=== PATIENT | female | born 1995 | race Two or more races ===

== ENCOUNTER → 2017-10-09 | Outpatient (REF) | payer BC ==
[2017-10-09 13:37] LABS: BASO % 0.3 % (0.0-1.0); EOS # 0.1 10^3/uL (0.0-0.50); IMMATURE GRANULOCYTE % 0.3 % (0-0); LYMPH # 1.8 10^3/uL (1.5-6.5); MEAN CORPUSCULAR HEMOGLOBIN 29.2 pg (27.0-33.0); MEAN CORPUSCULAR HGB CONC 33.2 g/dl (32.0-36.5); MEAN CORPUSCULAR VOLUME 87.9 fl (80.0-96.0); MONO # 0.7 10^3/uL (0.0-0.8); MONO % 6.4 % (0.0-5.0); PLATELET COUNT, AUTOMATED 168 10^3/uL (150-450); RED CELL DISTRIBUTION WIDTH 11.9 % (11.5-14.5); WHITE BLOOD COUNT 11.6 10^3/uL (4.0-10.0)
[2017-10-09 14:50] LABS: ALBUMIN 4.2 GM/DL (3.2-5.2); ALBUMIN/GLOBULIN RATIO 1.27 (1.00-1.93); ALKALINE PHOSPHATASE 64 U/L (45-117); ALT/SGPT 17 U/L (12-78); ANION GAP 8 MEQ/L (8-16); AST/SGOT 9 U/L (7-37); BILIRUBIN,TOTAL 0.6 MG/DL (0.2-1.0); BLOOD UREA NITROGEN 7 MG/DL (7-18); CALCIUM LEVEL 9.3 MG/DL (8.5-10.1); CARBON DIOXIDE LEVEL 27 MEQ/L (21-32); CHLORIDE LEVEL 105 MEQ/L (98-107); FREE T4 1.23 NG/DL (0.78-1.33); GLUCOSE, FASTING 83 MG/DL (70-105); SODIUM LEVEL 140 MEQ/L (136-145); TOTAL PROTEIN 7.5 GM/DL (6.4-8.2)
== END ==
LOC: M SFHCADAM 11:07
PROVIDERS: ATTEND Physician Assistant Medical
DX: Z00.00 Encounter for general adult medical examination without abnormal findings (principal); F12.10 Cannabis abuse, uncomplicated; F41.9 Anxiety disorder, unspecified; F51.01 Primary insomnia

== ENCOUNTER → 2018-03-18 | Outpatient (REF) | payer BC ==
[2018-03-18 15:57] LABS: CHLAMYDIA DNA AMPLIFICATION NEGATIVE (NEGATIVE); GC DNA AMPLIFICATION NEGATIVE (NEGATIVE)
== END ==
LOC: M SFHCWAGY 12:53
DX: Z11.3 Encounter for screening for infections with a predominantly sexual mode of transmission (principal)
CPT/HCPCS: 87591

== ENCOUNTER → 2018-07-08 | Outpatient (CLI) | payer BC | LOC: M ADAMS 11:00 | DX: M25.561 Pain in right knee (principal) | CPT/HCPCS: 73564 ==

== ENCOUNTER → 2018-12-13 | Outpatient (REF) | payer BC ==
[2018-12-13 15:36] LABS: CHLAMYDIA DNA AMPLIFICATION NEGATIVE (NEGATIVE); GC DNA AMPLIFICATION NEGATIVE (NEGATIVE)
== END ==
LOC: M SFHCWAGY 11:28
PROVIDERS: ATTEND Nurse Practitioner Family
DX: Z12.4 Encounter for screening for malignant neoplasm of cervix (principal); Z11.3 Encounter for screening for infections with a predominantly sexual mode of transmission
CPT/HCPCS: 87491; 87591; G0123

== ENCOUNTER → 2019-04-12 | Outpatient (CLI) | payer BC ==
[2019-04-12 13:17] LABS: BASO % 0.4 % (0.0-1.0); EOS # 0.1 10^3/uL (0.0-0.50); EOS % 1.3 % (0.0-3.0); HEMATOCRIT 37.1 % (36.0-47.0); HEMOGLOBIN 12.5 g/dl (12.0-15.5); LYMPH # 1.5 10^3/uL (1.5-6.5); LYMPH % 15.9 % (24.0-44.0); MEAN CORPUSCULAR HEMOGLOBIN 30.6 pg (27.0-33.0); MEAN CORPUSCULAR HGB CONC 33.7 g/dl (32.0-36.5); MEAN CORPUSCULAR VOLUME 90.9 fl (80.0-96.0); MONO # 0.8 10^3/uL (0.0-0.8); MONO % 8.3 % (0.0-5.0); NEUTROPHILS # 6.7 10^3/uL (1.8-7.7); NEUTROPHILS % 73.7 % (36.0-66.0); PLATELET COUNT, AUTOMATED 152 10^3/uL (150-450); RED BLOOD COUNT 4.08 10^6/uL (4.00-5.40); WHITE BLOOD COUNT 9.1 10^3/uL (4.0-10.0)
[2019-04-12 14:55] LABS: CHLAMYDIA DNA AMPLIFICATION NEGATIVE (NEGATIVE); GC DNA AMPLIFICATION NEGATIVE (NEGATIVE)
[2019-04-13 11:03] LABS: HEPATITIS C VIRUS ABY INDEX < 0.0 INDEX (<0.8); HIV 1&2 SCREEN CENTAUR NEGATIVE (NEGATIVE); RUBELLA IgG QUALITATIVE IMMUNE (IMMUNE)
== END ==
LOC: M SMT 08:59
PROVIDERS: ATTEND Advanced Practice Midwife
DX: Z34.02 Encounter for supervision of normal first pregnancy, second trimester (principal); Z3A.18 18 weeks gestation of pregnancy

== ENCOUNTER → 2019-04-19 | Outpatient (CLI) | payer BC, MEDICAID ==
--- NOTE | 2019-04-20 12:56 | REP ---
OB ULTRASOUND: Real-time sonographic evaluation of the gravid uterus is performed. There is a single living intrauterine gestation. Estimated gestational age 22 weeks based on today's ultrasound. EDC 08/23/2019. BPD 51 mm = 21 weeks 4 days HC 196 mm = 21 weeks 5 days AC 185 mm = 23 weeks 2 days Femur length 39 mm = 22 weeks 5 days HC/AC ratio 1.06 within normal range. Estimated weight 537 grams, 72nd percentile. heart rate 151 beats per minute. SEEN/GROSSLY UNREMARKABLE Lateral ventricles Yes Posterior fossa Yes Upper lip Yes Four-chamber heart Yes LVOT Yes RVOT Yes Stomach Yes Cord insertion Yes Three vessel cord Yes Kidneys Mild hydronephrosis bilaterally, AP diameter renal pelves 6-7 mm Bladder Yes Spine Yes position: Breech. Placenta: Anterior and grade 0 with no previa or abruption. Amniotic fluid: Within normal limits. Cervix is closed and measures 4 cm in length. Electronically Signed by Farhad Anna MD 04/21/2019 10:56 A
== END ==
LOC: M RAD 16:20
PROVIDERS: ATTEND Advanced Practice Midwife
DX: Z34.02 Encounter for supervision of normal first pregnancy, second trimester (principal); Z3A.18 18 weeks gestation of pregnancy

== ENCOUNTER → 2019-06-01 | Outpatient (CLI) | payer BC, OTHER ==
[2019-06-01 14:04] LABS: HEMATOCRIT 38.5 % (36.0-47.0); HEMOGLOBIN 13.2 g/dl (12.0-15.5); MEAN CORPUSCULAR HEMOGLOBIN 31.8 pg (27.0-33.0); MEAN CORPUSCULAR HGB CONC 34.3 g/dl (32.0-36.5); MEAN CORPUSCULAR VOLUME 92.8 fl (80.0-96.0); PLATELET COUNT, AUTOMATED 137 10^3/uL (150-450); RED BLOOD COUNT 4.15 10^6/uL (4.00-5.40); WHITE BLOOD COUNT 7.9 10^3/uL (4.0-10.0)
== END ==
LOC: M SMT 09:04
PROVIDERS: ATTEND Advanced Practice Midwife
DX: Z34.82 Encounter for supervision of other normal pregnancy, second trimester (principal); Z3A.00 Weeks of gestation of pregnancy not specified

== ENCOUNTER → 2019-06-30 | Outpatient (CLI) | payer BC, MEDICAID, OTHER ==
[~2019-06-30] MED LIST: CVS1CAP2 PO; PRENTAB9 PO
--- NOTE | 2019-06-30 10:16 | REP ---
Clinical: Growth evaluation. Comparison: 04/19/2019 . Findings: Examination demonstrates a single live intrauterine in cephalic presentation. motion is identified by technologist. Placenta is noted anterior and grade one without evidence for placenta previa or abruption. Amniotic fluid volume is normal. Cervix measures 4.2 cm in length and appears closed. Nuchal cord cannot be excluded Gestational age by LMP 32 weeks 2-day with EILEEN 08/23/2019 . Gestational age by current measurements 33 weeks 0 days with EILEEN 08/18/2019 . FHR equals 150 beats per minute. BPD 8.2 cm 33 weeks 0 days HC 30.0 cm 33 weeks 2 days AC 28.8 cm 32 weeks 6 days FL 6.5 cm 33 weeks 4 days HL 5.6 cm 32 weeks 3 days HC/AC ratio 1.04 Estimated weight 2112 grams ( 59th percentile). Amniotic fluid index: 10.0 cm (8.5 - 24.3) Umbilical cord SD ratio: 2.19 (2.35 - 3.35). Impression: 1. Single live intrauterine in cephalic presentation demonstrating appropriate interval growth. 2. Nuchal cord cannot be excluded. Electronically Signed by Melvin García MD 06/30/2019 10:08 A
== END ==
LOC: M RAD 09:03
PROVIDERS: ATTEND Advanced Practice Midwife
DX: O36.8930 Maternal care for other specified fetal problems, third trimester, not applicable or unspecified (principal)

== ENCOUNTER → 2019-07-21 | Outpatient (CLI) | payer BC, MEDICAID | LOC: M SMT 09:25 | PROVIDERS: ATTEND Advanced Practice Midwife | DX: Z34.03 Encounter for supervision of normal first pregnancy, third trimester (principal); Z3A.00 Weeks of gestation of pregnancy not specified ==

== ENCOUNTER → 2019-07-25 | Outpatient (CLI) | payer BC, MEDICAID ==
--- NOTE | 2019-07-26 04:28 | REP ---
Clinical: Growth discrepancy Comparison: 06/30/2019 . Findings: Examination demonstrates a single live intrauterine in cephalic presentation. motion is identified by technologist. Placenta is noted anterior and grade II without evidence for placenta previa or abruption. Amniotic fluid volume is normal. Cervix measures 3.4 cm in length and appears closed. Nuchal cord cannot be excluded. Gestational age by LMP 35 weeks 6 days with EILEEN 08/23/2019 . Gestational age by current measurements 36 weeks 2 days with EILEEN 08/20/2019 . FHR equals 157 beats per minute. BPD 9.2 cm 37 weeks 2 day HC 32.1 cm 36 weeks 2 day AC 32.0 cm 35 weeks 6 days FL 7.3 cm 37 weeks 2 days HL 6.0 cm 34 weeks 4 days HC/AC ratio 1.00 Estimated weight 2938 grams ( 60th percentile). Amniotic fluid index: 10.0 cm (7.7 - 24.9) Umbilical cord SD ratio: 2.37 (2.00 - 3.00). Anatomical assessment suggests mild bilateral hydronephrosis with the right renal pelvis measuring 8 mm diameter and the left renal pelvis measuring 9 mm diameter. Stomach and renal bladder appear normal. Impression: 1. Single live advanced gestation in cephalic presentation demonstrating appropriate interval growth. 2. Very mild bilateral renal hydronephrosis warrants follow-up examination. Electronically Signed by Melvin García MD 07/26/2019 04:19 A
== END ==
LOC: M RAD 07:05
PROVIDERS: ATTEND Advanced Practice Midwife
DX: O26.843 Uterine size-date discrepancy, third trimester (principal); Z3A.36 36 weeks gestation of pregnancy

== ENCOUNTER 2019-08-22 09:30 | Inpatient (IN) | payer BC, MEDICAID ==
[~2019-08-22] VITALS: Ht 165.1 cm; Wt 68.8 kg
[2019-08-22] VITALS (43 sets, daily range): BP systolic 91–150; BP diastolic 50–88
[2019-08-22] MEDS ORDERED: CVS1CAP2 PO (10:27)
[2019-08-22] MEDS ORDERED: PRENTAB9 PO (10:27)
--- NOTE | 2019-08-22 10:39 | HPEPDOC ---
Obstetrical History & Physical General Date of Admission Aug 22, 2019 at 09:30 Primary Care Physician: MEKHI RODRIGUEZ CNM History of Present Illness Patient is a 24-year-old female who is a G!P0 at 40.6 weeks gestation with an EILEEN of 08/16/19 based off of a 2nd trimester ultrasound done at 17 weeks gestation. Her has been complicated late entry to care, thrombocytopenia and mild hydronephrosis of fetus. She presents to L&D for an elective induction of labor. She denies contractions, leaking of fluid, or vaginal bleeding. She reports active movement. Information Provided By: Patient Age: 24 : 1 Term: 0 Pre-term: 0 Abortions: 0 Livin Care Care: Good Care (10) Number of Visits: 10 Dating Final EDC: Aug 16, 2019 Final EDC by: 2nd trimester (US) EGA at Admission: 40.6 Antepartum Course Diagnos(e)s thrombocytopenia of Height (inches): 65 Pre- weight (lbs.): 146 Admission Weight (lbs.): 152 Change in Weight (lbs.): 6 Past Medical History Past Obstetrical History : Past Obstetrical History: Primgravida TIRE [employer]OUNTER History: No pertinent history Past Medical History Medical History subluxation of patella anxiety Surgical History: Denies/None Family History Significant Family History: Cancer, Diabetes, Other (MS) Social History Social history paternity unknown Marital Status: Single Psychosocial History: Anxiety * Smoker: non-smoker Alcohol: Denies Drugs: marijuana (reports she used 1 time i nthe begining of her ) Imunizations Tdap status: declined Influenza Status: declined Allergies Coded Allergies: No Known Allergies (Unverified , 08/22/19) Medications Scheduled Lactobacillus Combo No.10 (Probiotic) 1 Each Capsule, 1 TAB PO DAILY No.137/Iron/Folic Acd ( Vitamin Tablet) 1 Each Tablet, 1 TAB PO DAILY Physical Examination Physical Examination GENERAL: Alert and oriented times three. BREAST: . ABDOMEN: Gravid and non-tender to touch. FETUS: Is vertex (VTX) by sterile vaginal examination (SVE), fetus is vertex (VTX) by Vikas. HEART RATE: Regular rate and rhythm. LUNGS: Clear to auscultation (CTA). EXTREMITIES: No edema. No clonus. Deep tendon reflexes (DTRs) + 2. Vital Signs/I&O Vital Signs Label Value Date Time Patient Temperature 97.8 degrees F 08/22/19 1037 Pulse 94 08/22/19 1037 Respiratory Rate 16 bpm 08/22/19 1037 Blood Pressure Assessment 127/81 (96) 08/22/19 1037 Source Automatic Cuff (NIBP) Laboratory Data [facility] Laboratory Tests 2 08/22/19 09:50: Serology Scanned Report Hepatitis B Testing CBC/BMP Item Value Date Time White Blood Count 13.0 10^3/uL H 08/22/19 1049 Red Blood Count 4.41 10^6/uL 08/22/19 1049 Hemoglobin 14.0 g/dl 08/22/19 1049 Hematocrit 40.0 % 08/22/19 1049 Mean Corpuscular Volume 90.7 fl 08/22/19 1049 Mean Corpuscular Hemoglobin 31.7 pg 08/22/19 1049 Mean Corpuscular Hemoglobin Concent 35.0 g/dl 08/22/19 1049 Red Cell Distribution Width 12.0 % 08/22/19 1049 Platelet Count 123 10^3/uL L 08/22/19 1049 Nucleated Red Blood Cells % (auto) 0.0 % 08/22/19 1049 Urine Culture: No Growth Pertinent Laboratoy Data Blood Type: O+ RBC Antibody Screen: Negative HIV: Negative Hepatitis B: Negative Hepatitis C: Negative Rapid Plasma Reagin: Nonreactive Rubella: Immune Chlamydia/Gonorrhea: Negative Group B Streptococcus: Negative Quad Screen Test: Declined Cystic Fibrosis: Declined Glucose Tolerance Test: 125 Anatomy Ultrasound Ultrasound Date: Jul 25, 2019 Placenta Location: Anterior Normal Anatomy: Yes Placenta Previa: No Estimated Weight (grams): 2938 Vaginal Examination Dilation: 1cm Effacement: other (75%) Station: -1 Cervical Consistency: Medium Cervical Position: Anterior Presentation: Cephalic presentation Position: Vertex (occiput) Assessment Heart Rate (FHR): 130 Variability: Moderate Accelerations: Positive Decelerations: None Tocometer Contractions: Yes Frequency: irregular Assessment/Plan Assessment IUP at 40.6 weeks gestation GBS negative Category I FHR tracing Plan Admit to L&D. OOB ad amelie Diet: regular. Group B Streptococcus (GBS) negative. Labs and intravenous (IV) per unit protocol. Counseled Cytotec, mejia bulb and Pitocin for induction of labor (IOL). Anesthesia consult per patient's request. Anticipate cervical ripening. MEKHI RODRIGUEZ CNM Aug 22, 2019 10:39
[2019-08-22] MEDS ORDERED: miSOPROStol 50 MCG 1/2 TAB (S0191) PO SCH (11:00)
[2019-08-22 11:07] LABS: MEAN CORPUSCULAR HEMOGLOBIN 31.7 pg (27.0-33.0); MEAN CORPUSCULAR VOLUME 90.7 fl (80.0-96.0); PLATELET COUNT, AUTOMATED 123 10^3/uL (150-450); RED BLOOD COUNT 4.41 10^6/uL (4.00-5.40)
[2019-08-22 13:48] LABS: AMPHETAMINES URINE REFLEX NEGATIVE (NEGATIVE); BARBITURATES URINE REFLEX NEGATIVE (NEGATIVE); BENZODIAZEPINES URINE REFLEX NEGATIVE (NEGATIVE); CANNABINOIDS URINE REFLEX NEGATIVE (NEGATIVE); COCAINE METABOLITE URINE REFLE NEGATIVE (NEGATIVE); METHADONE URINE REFLEX NEGATIVE (NEGATIVE); OPIATES URINE REFLEX NEGATIVE (NEGATIVE); PHENCYCLIDINE URINE REFLEX NEGATIVE (NEGATIVE)
--- NOTE | 2019-08-22 17:58 | IPNPDOC ---
Obstetrical Progress Note Date of Service Aug 22, 2019 Subjective Patient reports she is feeling cramps with her contractions. Objective Vital Signs Date Time Temp Pulse Resp B/P (MAP) Pulse Ox O2 Delivery O2 Flow Rate FiO2 08/22/19 17:32 86 16 116/74 (88) 08/22/19 15:34 99.5 Assessment Heart Rate (FHR): 125 Variability: Moderate Accelerations: Positive Decelerations: None Heart Rate Tracing: Category I Tocometer Contractions: Yes Frequency: regular, every 1-5 min. Sterile Vaginal Examination Dilation: 1cm Effacement (%): 90% Station: 0 Cervical Position: Anterior Postion/Presentation: Cephalic presentation Assessment and Plan Age: 24 : 1 Term: 0 Pre-term: 0 Abortions: 0 Livin EGA at Admission: 40.6 Status: Reassuring Group B Streptococcus: Negative Anticipate: Vaginal Delivery Additional Comments Patient ruptured spontaneously to a moderate amount of clear fluid at 1514. IV Pitocin ordered and to be started. MEKHI RODRIGUEZ CNM Aug 22, 2019 17:58
[2019-08-22] MEDS ORDERED: OXYTOCIN DRIP 30 UNITS in IV 1 EA IV SCH (18:00)
[2019-08-22] MEDS: LR 1,000 ML IV SCH ×2 (18:24→20:46)
[2019-08-22] MEDS ORDERED: FENTANYL 2MCG/ML ROPIVACAINE 0.2% IN 0.9% NACL 100ML IVBAG As Ordered ONE (19:25)
[2019-08-22] MEDS ORDERED: ePHEDrine SULFATE 25 MG/5 ML(5MG/ML) SYRINGE As Ordered ONE (20:50)
[2019-08-22] MEDS ORDERED: EPIDURAL COMMENT XX SCH (21:00)
[2019-08-22] MEDS ORDERED: diphenhydrAMINE INJ 50MG/ML VIAL (J1200) IV PRN (21:00)
[2019-08-22] MEDS ORDERED: EPIDURAL/PCA KEYS XX PRN (21:00)
[2019-08-22] MEDS ORDERED: NALOXONE INJ 0.4 MG/1 ML VIAL (J2310) IV PRN (21:00)
[2019-08-22] MEDS ORDERED: ONDANSETRON 4MG/2ML VIAL (J2405) IV PRN (21:00)
[2019-08-22] MEDS ORDERED: FENTANYL/ROPIVACAINE/NACL BAG 100 ML EPIDURAL SCH (21:00)
[2019-08-22] MEDS ORDERED: REFRIGERATOR IV KEYS XX PRN (21:00)
[2019-08-22] MEDS: ePHEDrine SULFATE 25 MG/5 ML(5MG/ML) SYRINGE IV PRN (21:25)
[2019-08-23] VITALS (24 sets, daily range): BP systolic 96–123; BP diastolic 51–86
[2019-08-23] MEDS: ePHEDrine SULFATE 25 MG/5 ML(5MG/ML) SYRINGE IV PRN (00:01)
--- NOTE | 2019-08-23 01:06 | IPNPDOC ---
Obstetrical Progress Note Date of Service Aug 23, 2019 Subjective Patient comfortable with her epidural. Objective Vital Signs Date Time Temp Pulse Resp B/P (MAP) Pulse Ox O2 Delivery O2 Flow Rate FiO2 08/23/19 00:30 88 18 107/56 (73) 08/22/19 20:06 98.0 Assessment Heart Rate (FHR): 130 Variability: Moderate Accelerations: Positive Decelerations: Early, Late Heart Rate Tracing: Category II Tocometer Contractions: Yes Frequency: regular, other (2-3 minutes) Sterile Vaginal Examination Dilation: 4 cm (4-5 cm) Effacement (%): 100% Station: 0 Postion/Presentation: Cephalic presentation Assessment and Plan Age: 24 : 3 Term: 1 Pre-term: 0 Abortions: 1 Livin EGA at Admission: 40.6 Weeks & Days 41 weeks Status: Reassuring Group B Streptococcus: Negative Anticipate: Vaginal Delivery Additional Comments IV Pitocin at 6 mu/min. Will continue to monitor. MEKHI RODRIGUEZ CNM Aug 23, 2019 01:06
[2019-08-23] MEDS ORDERED: OXYTOCIN DRIP 30 UNITS in IV 1 EA IV SCH (03:40)
[2019-08-23] MEDS ORDERED: IBUPROFEN 600 MG TAB PO PRN (03:45)
[2019-08-23] MEDS ORDERED: ACETAMINOPHEN 500 MG TAB PO PRN (03:45)
[2019-08-23] MEDS ORDERED: IBUPROFEN 800 MG TAB PO PRN (03:45)
[2019-08-23] MEDS ORDERED: DOCUSATE SODIUM 100 MG CAP PO PRN (03:45)
[2019-08-23] MEDS ORDERED: DIBUCAINE 1% OINTMENT 30GM TOP PRN (03:45)
[2019-08-23] MEDS ORDERED: METHYLERGONOVINE MALEATE 0.2 MG TAB PO PRN (03:45)
[2019-08-23] MEDS ORDERED: MEASLES,MUMPS,RUBELLA VACCINE INJ (MMR-II) (90707) SC SCH (03:45)
[2019-08-23] MEDS ORDERED: ANUSOL HC CREAM 30GM TOP PRN (03:45)
[2019-08-23] MEDS ORDERED: RHOGAM 300 MCG (1500 IU) INJ (J2790) IM SCH (03:45)
--- NOTE | 2019-08-23 03:49 | DNPDOC ---
[facility] Delivery Note Delivery Note DATE OF DELIVERY: 08/23/19 at 0313 PREDELIVERY DIAGNOSIS: 41-0/7 weeks' gestation and labor. POST DELIVERY DIAGNOSIS: Delivered. PROCEDURE: Spontaneous vaginal delivery. ROUTE SALES REPRESENTATIVE: Mekhi Armenta CNM, JASPER ANESTHESIA: epidural. ESTIMATED BLOOD LOSS: 200 mL. FINDINGS: 6 pounds 13 ounces, 3100 grams, male , Score 8/9, nuchal cord times x1 loose. DELIVERY SUMMARY: Patient is a 24-year-old female who is now a at 41 weeks gestation who presented for an IOL. She received 1 dose of cytotec and IV Pitocin for her induction. The patient received an epidural for pain management. she progressed to fully dilated at 0252 and pushed to a living male in the MILLA position with restitution to ROT at 0313. The anterior shoulder delivered with ease and the corpus immediately followed. The baby was placed on the maternal abdomen active and crying. The cord was clamped times 2 after pulsation ceased and cut by the patient's mother. A 3-vessel cord was noted. The placenta delivered spontaneously and intact at 0318. Uterine hemostasis was achieved via rapid infusion of IV Pitocin and fundal massage. The vagina, perineum and cervix was inspected and found to have a right labial laceration that extended into the the right vaginal wall, which was repaired with 3.[address]-1. The mother and baby are both in stable condition. Mom plans to breast feed her . She is naming him Yang. All counts of instruments and sponges are correct. MEKHI ARMENTA CNM Aug 23, 2019 03:49
[2019-08-23] MEDS ORDERED: SLF 3 ML SYR IV PRN (06:00)
[2019-08-23] MEDS: PRENATAL VITAMINS CHEWABLE TABLET PO SCH (09:46)
[2019-08-23] MEDS: SLF 3 ML SYR IV SCH ×3 (09:46→22:00)
[2019-08-23] MEDS: ACETAMINOPHEN TAB 650MG DOSE (2X325MG) PO PRN (19:57)
[2019-08-24 06:37] VITALS: BP 101/57
[2019-08-24] MEDS: PRENATAL VITAMINS CHEWABLE TABLET PO SCH (09:42)
[2019-08-24] MEDS: ACETAMINOPHEN TAB 650MG DOSE (2X325MG) PO PRN (11:14)
== END 2019-08-24 15:25 | disposition home or self-care (01) | DRG 560 ==
LOC: M LDI 09:30 → M OBS 08-23 05:12
PROVIDERS: ADMIT Advanced Practice Midwife; ATTEND Advanced Practice Midwife
PROC: 3E0P7GC Introduction of Other Therapeutic Substance into Female Reproductive, Via Natural or Artificial Opening (ICD-10-PCS; 2019-08-22)
PROC: 10E0XZZ Delivery of Products of Conception, External Approach (ICD-10-PCS; principal; 2019-08-23)
PROC: 0HQ9XZZ Repair Perineum Skin, External Approach (ICD-10-PCS; 2019-08-23)
DX: O99.12 Other diseases of the blood and blood-forming organs and certain disorders involving the immune mechanism complicating childbirth (principal); Z3A.40 40 weeks gestation of pregnancy; Z37.0 Single live birth; O48.0 Post-term pregnancy; D69.6 Thrombocytopenia, unspecified; O69.81X0 Labor and delivery complicated by cord around neck, without compression, not applicable or unspecified; O70.0 First degree perineal laceration during delivery

== ENCOUNTER → 2019-10-13 | Outpatient (REF) | payer MEDICAID | LOC: M LAB REF 13:16 | PROVIDERS: ATTEND Advanced Practice Midwife | DX: R30.0 Dysuria (principal) ==

== ENCOUNTER → 2020-02-08 | Outpatient (REF) | payer BC, MEDICAID, OTHER ==
[2020-02-08 19:48] LABS: CHLAMYDIA DNA AMPLIFICATION NEGATIVE (NEGATIVE); GC DNA AMPLIFICATION NEGATIVE (NEGATIVE)
== END ==
LOC: M SFHCWAGY 17:46
PROVIDERS: ATTEND Advanced Practice Midwife
DX: Z11.3 Encounter for screening for infections with a predominantly sexual mode of transmission (principal)

== ENCOUNTER → 2020-03-28 | Outpatient (REF) | payer OTHER ==
[2020-03-28 21:05] LABS: CHLAMYDIA DNA AMPLIFICATION NEGATIVE (NEGATIVE); GC DNA AMPLIFICATION NEGATIVE (NEGATIVE)
== END ==
LOC: M PLALAB 11:18
PROVIDERS: ATTEND Advanced Practice Midwife
DX: Z76.89 Persons encountering health services in other specified circumstances (principal)

== ENCOUNTER → 2021-09-13 | Outpatient (REF) | payer OTHER ==
[2021-09-13 19:22] LABS: GC DNA AMPLIFICATION NEGATIVE (NEGATIVE)
== END ==
LOC: M SFHCWAGY 17:02
PROVIDERS: ATTEND Advanced Practice Midwife
DX: Z11.3 Encounter for screening for infections with a predominantly sexual mode of transmission (principal)

== ENCOUNTER → 2023-02-17 | Outpatient (CLI) | payer OTHER ==
[2023-02-17 18:02] LABS: HEMATOCRIT 40.5 % (36.0-47.0); HEMOGLOBIN 13.6 g/dl (12.0-15.5); MEAN CORPUSCULAR HEMOGLOBIN 30.4 pg (27.0-33.0); MEAN CORPUSCULAR HGB CONC 33.6 g/dl (32.0-36.5); MEAN CORPUSCULAR VOLUME 90.4 fl (80.0-96.0); PLATELET COUNT, AUTOMATED 171 10^3/uL (150-450); RED BLOOD COUNT 4.48 10^6/uL (4.00-5.40); WHITE BLOOD COUNT 10.1 10^3/uL (4.0-10.0)
[2023-02-17 18:44] LABS: HIV 1&2 SCREEN CENTAUR NEGATIVE (NEGATIVE)
[2023-02-17 19:13] LABS: GC DNA AMPLIFICATION NEGATIVE (NEGATIVE)
== END ==
LOC: M PLALAB 15:17
PROVIDERS: ATTEND Advanced Practice Midwife
DX: Z34.91 Encounter for supervision of normal pregnancy, unspecified, first trimester (principal)

== ENCOUNTER → 2023-05-13 | Outpatient (CLI) | payer OTHER | LOC: M RAD 09:16 | PROVIDERS: ATTEND Advanced Practice Midwife | DX: Z34.82 Encounter for supervision of other normal pregnancy, second trimester (principal) ==

== ENCOUNTER → 2023-06-17 | Outpatient (CLI) | payer OTHER ==
[2023-06-17 15:34] LABS: HEMATOCRIT 39.7 % (36.0-47.0); HEMOGLOBIN 13.3 g/dl (12.0-15.5); MEAN CORPUSCULAR HEMOGLOBIN 31.2 pg (27.0-33.0); MEAN CORPUSCULAR HGB CONC 33.5 g/dl (32.0-36.5); MEAN CORPUSCULAR VOLUME 93.2 fl (80.0-96.0); PLATELET COUNT, AUTOMATED 148 10^3/uL (150-450); RED BLOOD COUNT 4.26 10^6/uL (4.00-5.40); WHITE BLOOD COUNT 11.4 10^3/uL (4.0-10.0)
[2023-06-17 17:00] LABS: GC DNA AMPLIFICATION NEGATIVE (NEGATIVE)
== END ==
LOC: M PLALAB 12:06
PROVIDERS: ATTEND Advanced Practice Midwife
DX: Z34.82 Encounter for supervision of other normal pregnancy, second trimester (principal)

== ENCOUNTER → 2023-07-24 | Outpatient (CLI) | payer OTHER | LOC: M LAB 08:10 | PROVIDERS: ATTEND Advanced Practice Midwife | DX: O99.810 Abnormal glucose complicating pregnancy (principal); Z3A.00 Weeks of gestation of pregnancy not specified ==

== ENCOUNTER → 2023-07-29 | Outpatient (REF) | payer OTHER | LOC: M SFHCWAGY 10:59 | PROVIDERS: ATTEND Advanced Practice Midwife | DX: R30.0 Dysuria (principal) ==

== ENCOUNTER → 2023-08-05 | Outpatient (REF) | payer OTHER | LOC: M PLALAB 09:31 | PROVIDERS: ATTEND Advanced Practice Midwife | DX: Z36.89 Encounter for other specified antenatal screening (principal); Z3A.36 36 weeks gestation of pregnancy ==

== ENCOUNTER → 2023-08-14 | Outpatient (CLI) | payer OTHER | LOC: M WHC 08:15 | PROVIDERS: ATTEND Advanced Practice Midwife | DX: O24.410 Gestational diabetes mellitus in pregnancy, diet controlled (principal) ==

== ENCOUNTER 2023-08-27 07:38 | Inpatient (IN) | payer OTHER ==
[2023-08-27] VITALS (17 sets, daily range): BP systolic 104–147; BP diastolic 55–93; O2SAT 96
[~2023-08-27] VITALS: Ht 167.6 cm; Wt 77.2 kg
[2023-08-27] MEDS ORDERED: HOME MED LIST COMPLETE! XX SCH (08:25)
[2023-08-27] MEDS ORDERED: OXYTOCIN DRIP 30 UNITS in IV 1 EA IV PRN (08:30)
[2023-08-27] MEDS ORDERED: LIDOCAINE 1% MDV 20ML VIAL INFIL PRN (08:30)
[2023-08-27 09:06] LABS: HEMATOCRIT 37.2 % (36.0-47.0); HEMOGLOBIN 12.7 g/dl (12.0-15.5); MEAN CORPUSCULAR HEMOGLOBIN 30.8 pg (27.0-33.0); MEAN CORPUSCULAR HGB CONC 34.1 g/dl (32.0-36.5); MEAN CORPUSCULAR VOLUME 90.3 fl (80.0-96.0); PLATELET COUNT, AUTOMATED 102 10^3/uL (150-450); RED BLOOD COUNT 4.12 10^6/uL (4.00-5.40)
[2023-08-27] MEDS: miSOPROStol 50MCG 1/2 TABLET SL SCH ×3 (09:09→17:40)
[2023-08-27] MEDS ORDERED: OXYTOCIN DRIP 30 UNITS in IV 1 EA IV SCH (22:45)
[2023-08-28] VITALS (40 sets, daily range): BP systolic 100–148; BP diastolic 55–90; O2SAT 97–100
[2023-08-28] MEDS: LR 1,000 ML IV SCH ×3 (01:08→06:30)
[2023-08-28] MEDS ORDERED: EPIDURAL/PCA KEYS XX PRN (05:50)
[2023-08-28] MEDS ORDERED: LR 500 ML IV PRN (05:50)
[2023-08-28] MEDS ORDERED: ONDANSETRON 4MG 2ML VIAL IV PRN (05:50)
[2023-08-28] MEDS ORDERED: ePHEDrine SULFATE 25 MG/5 ML(5MG/ML) SYRINGE IVP PRN (05:50)
[2023-08-28] MEDS ORDERED: NALOXONE INJ 0.4MG/1ML VIAL IV PRN (05:50)
[2023-08-28] MEDS ORDERED: FENTANYL/ROPIVACAINE/NACL BAG 100 ML EPIDURAL SCH (05:50)
[2023-08-28] MEDS ORDERED: diphenhydrAMINE 50MG/ML VIAL IV PRN (05:50)
[2023-08-28] MEDS: PRENATAL VITAMINS CHEWABLE TABLET PO SCH (09:00)
[2023-08-28] MEDS ORDERED: IBUPROFEN 800 MG TAB PO PRN (11:15)
[2023-08-28] MEDS ORDERED: DIBUCAINE 1% OINTMENT 30GM TOP PRN (11:15)
[2023-08-28] MEDS ORDERED: DOCUSATE SODIUM 100MG CAPSULE PO PRN (11:15)
[2023-08-28] MEDS ORDERED: IBUPROFEN 600MG TAB PO PRN (11:15)
[2023-08-28] MEDS ORDERED: RHOGAM 300MCG (1500IU) INJ IM SCH (11:15)
[2023-08-28] MEDS ORDERED: ACETAMINOPHEN TAB 650MG DOSE (2X325MG) PO PRN (11:15)
[2023-08-28] MEDS ORDERED: METHYLERGONOVINE MALEATE 0.2 MG TAB PO PRN (11:15)
[2023-08-28] MEDS ORDERED: ACETAMINOPHEN 500 MG TAB PO PRN (11:15)
[2023-08-29 06:02] VITALS: BP 118/72; O2SAT 100
[2023-08-29] MEDS: PRENATAL VITAMINS CHEWABLE TABLET PO SCH (08:46)
[2023-08-29 17:34] VITALS: BP 120/60; O2SAT 97
[2023-08-30 05:48] VITALS: BP 115/64; O2SAT 99
[2023-08-30] MEDS: PRENATAL VITAMINS CHEWABLE TABLET PO SCH (08:24)
[2023-08-30] MEDS ORDERED: MEASLES,MUMPS,RUBELLA VACCINE INJ (MMR-II) SC.IMMUN ONE (09:00)
== END 2023-08-30 11:01 | disposition home or self-care (01) | DRG 560 ==
LOC: M LDI 07:38 → M OBS 08-28 12:53
PROVIDERS: ADMIT Specialist; ATTEND Specialist
PROC: 3E033VJ Introduction of Other Hormone into Peripheral Vein, Percutaneous Approach (ICD-10-PCS; 2023-08-27)
PROC: 3E0P7VZ Introduction of Hormone into Female Reproductive, Via Natural or Artificial Opening (ICD-10-PCS; 2023-08-27)
PROC: 10E0XZZ Delivery of Products of Conception, External Approach (ICD-10-PCS; principal; 2023-08-28)
DX: O24.429 Gestational diabetes mellitus in childbirth, unspecified control (principal); F17.200 Nicotine dependence, unspecified, uncomplicated; Z37.0 Single live birth; Z3A.39 39 weeks gestation of pregnancy; O99.334 Smoking (tobacco) complicating childbirth; O69.82X0 Labor and delivery complicated by other cord entanglement, without compression, not applicable or unspecified; O76 Abnormality in fetal heart rate and rhythm complicating labor and delivery

== ENCOUNTER 2025-10-17 15:27 | Emergency (ER) | payer OTHER ==
[~2025-10-17] VITALS: Ht 167.6 cm; Wt 62.6 kg
[2025-10-17 15:56] LABS: KETONE, URINE AUTO RFX NEGATIVE (NEGATIVE); LEUKOCYTE ESTERASE UR AUTO RFX NEGATIVE (NEGATIVE); MUCUS, URINE RFX MODERATE (NEGATIVE); RBC, URINE AUTO RFX 1 /HPF (0-3); SQUAM EPITHELIAL CELL UR AURFX 10 /HPF (0-6); WBC, URINE AUTO RFX 5 /HPF (0-3)
[2025-10-17 16:01] LABS: NITRITE, URINE AUTO RFX POSITIVE (NEGATIVE)
[2025-10-17] MEDS ORDERED: SULF1TAB23 PO (17:36)
[2025-10-17 17:37] VITALS: BP 132/75; TEMP 97.1; O2SAT 100
== END 2025-10-17 17:41 | disposition home or self-care (01) ==
LOC: M ED 15:27
DX: N39.0 Urinary tract infection, site not specified (principal); Z79.2 Long term (current) use of antibiotics; Z79.899 Other long term (current) drug therapy

== ENCOUNTER 2025-11-25 07:31 | Emergency (ER) | payer OTHER ==
[~2025-11-25] VITALS: Ht 167.6 cm; Wt 58.8 kg
[~2025-11-25 07:31] MED LIST changes: +RALTEGRAVIR 400 MG TAB PO SCH; +SULF-7 PO
[2025-11-25 08:53] LABS: BASO # 0.1 10^3/uL (0.0-0.2); BASO % 0.6 % (0.0-1.0); EOS # 0.2 10^3/uL (0.0-0.5); EOS % 1.4 % (0.0-3.0); LYMPH # 2.6 10^3/uL (1.5-5.0); LYMPH % 23.4 % (24.0-44.0); MONO # 1.0 10^3/uL (0.0-0.8); MONO % 8.7 % (2.0-8.0); NEUTROPHILS # 7.3 10^3/uL (1.5-8.5); NEUTROPHILS % 65.8 % (36.0-66.0); PLATELET COUNT, AUTOMATED 211 10^3/uL (150-450)
[2025-11-25 09:19] LABS: ALT/SGPT 18 U/L (7.0-40); AST/SGOT 19 U/L (<34); CALCIUM LEVEL 9.4 MG/DL (8.5-10.1); CARBON DIOXIDE LEVEL 25 MMOL/L (20-31); CHLORIDE LEVEL 103 MMOL/L (98-107); CREATININE FOR GFR 0.64 MG/DL (0.55-1.30); GLOMERULAR FILTRATION RATE > 90.0 (>60); POTASSIUM SERUM 3.6 MMOL/L (3.5-5.1); SODIUM LEVEL 138 MMOL/L (136-145)
[2025-11-25 09:24] LABS: HCG, SERUM QUALITATIVE POSITIVE (NEGATIVE)
[2025-11-25 10:00] LABS: HEPATITIS B SURFACE ANTIBODY NEGATIVE (POSITIVE); HEPATITIS C VIRUS ABY INDEX 0.06 INDEX (<0.8); HIV 1&2 SCREEN NEGATIVE (NEGATIVE)
[2025-11-25 10:01] LABS: Trichomonas vaginalis (AMP) NOT DETECTED (NEGATIVE)
[2025-11-25 10:24] LABS: GC DNA AMPLIFICATION NEGATIVE (NEGATIVE)
[2025-11-25 10:47] LABS: HCG, SERUM QUANTITATIVE 25.8 MIU/ML (<4.2)
[2025-11-25] MEDS ORDERED: EXPOSURE KIT-ADULT 7 DAY SUPPLY PO ONE (11:25)
[2025-11-25 11:28] VITALS: BP 123/78; TEMP 98.7; O2SAT 98
[2025-11-25] MEDS: AZITHROMYCIN 250 MG TABLET PO ONE (11:55)
[2025-11-25] MEDS: TETANUS/DIPHTH/ACEL. PERTUSSIS 0.5 ML SYR IM.IMMUN ONE (11:57)
[2025-11-25] MEDS: RALTEGRAVIR 400 MG TAB PO ONE (12:28)
[2025-11-25] MEDS: HEPATITIS B VACCINE 20 MCG/ML IM.IMMUN ONE (12:33)
[2025-11-25] MEDS: LIDOCAINE 1% SDV 5 ML VIAL DILUENT ONE (12:33)
[2025-11-25] MEDS: cefTRIAXone 500 MG VIAL IM ONE (12:33)
[2025-12-03] MEDS ORDERED: VALP1CAP2 PO (11:13)
[2025-12-03] MEDS ORDERED: RISP0.5T82 PO (11:13)
[2025-12-04] MEDS ORDERED: TRAZ-252 PO (12:48)
== END 2025-11-25 12:45 | disposition short-term general hospital (02) ==
LOC: M ED 07:31
DX: T74.21XA Adult sexual abuse, confirmed, initial encounter (principal); N82.3 Fistula of vagina to large intestine; Z53.20 Procedure and treatment not carried out because of patient's decision for unspecified reasons; Y92.009 Unspecified place in unspecified non-institutional (private) residence as the place of occurrence of the external cause; Z23 Encounter for immunization
CPT/HCPCS: 80053; 84702; 84703; 85025; 86706; 86780; 86803; 87340; 87389; 87661; 87810; 87850; 90471; 90472; 90715; 90746; 96372; 99284; J0696